=== PATIENT | male | born 1955 | race American Indian/Alaskan Native ===

== ENCOUNTER 2019-07-07 19:42 | Emergency (ER) | payer MEDICARE ==
[2019-07-07] MEDS ORDERED: levETIRAcetam 1,000 MG in SODIUM CHLORIDE 0.9% 100 ML IV ONE (20:52)
[2019-07-07] MEDS ORDERED: levETIRAcetam 1000 MG/NS 0.75% 1,000 MG/100 ML BAG IV ONE (21:00)
--- NOTE | 2019-07-07 21:05 | Emergency Department Report ---
ED Head Trauma HPI - General Chief complaint: Alcohol Stated complaint: AMS Time Seen by Provider: 07/07/19 20:19 Source: EMS Mode of arrival: Ambulatory Limitations: Other - History of Present Illness Initial comments: 64-year-old male brought in by EMS for head injury. Patient is bleeding from the nose and right ear. Patient is altered, smells of alcohol. Only able to tell me his name and states that he has to use the restroom. It is unclear the circumstances surrounding this head injury. Patient was apparently picked up from home. Has history of liver cirrhosis. Complaint: head injury -: unknown Arrival Conditions: Negative: C-spine immobilization present, spinal board immobilization present Mechanism of Injury: unsure Associated Symptoms: confusion - Related Data Allergies/Adverse reactions: Allergies Allergy/AdvReac Type Severity Reaction Status Date / Time No Known Allergies Allergy Unverified 07/07/19 22:17 ED Review of Systems ROS: Stated complaint: AMS Other details as noted in HPI Comment: Unobtainable due to pts medical conditions (pt is altered) ED Past Medical Hx - Past Medical History Hx Hypertension: Yes Hx Liver Disease: Yes (cirrhosis) Additional medical history: ETOH - Surgical History Additional Surgical History: CLARI - Social History Smoking Status: Unknown if ever smoked Substance Use Type: Alcohol ED Physical Exam - General Limitations: Other General appearance: appears intoxicated, lethargic - Eye Eye exam: Present: normal appearance, PERRL, EOMI - ENT ENT exam: Present: other (blood in the right external auditory canal; dried blood in nares) - Neck Neck exam: Present: normal inspection, full ROM. Absent: tenderness - Respiratory Respiratory exam: Present: normal lung sounds bilaterally. Absent: respiratory distress - Cardiovascular Cardiovascular Exam: Present: regular rate, normal rhythm - GI/Abdominal GI/Abdominal exam: Present: soft. Absent: distended, tenderness - Extremities Exam Extremities exam: Present: normal inspection - Neurological Exam Neurological exam: Present: altered, other (GCS=10, moves all extremities). Absent: oriented X3 (oriented to self) - Psychiatric Psychiatric exam: Present: normal affect, normal mood - Skin Skin exam: Present: warm, dry, intact ED Course Vital Signs 07/07/19 07/07/19 07/07/19 20:17 21:08 21:15 Temperature 97.5 F L Pulse Rate 80 83 79 Respiratory 18 15 16 Rate Blood Pressure 144/84 131/74 O2 Sat by Pulse 97 94 Oximetry 07/07/19 07/07/19 07/07/19 21:30 21:46 22:07 Temperature Pulse Rate 79 82 102 H Respiratory 17 23 22 Rate Blood Pressure 136/83 176/86 O2 Sat by Pulse 95 97 Oximetry 07/07/19 22:15 Temperature Pulse Rate 80 Respiratory 12 Rate Blood Pressure 204/86 O2 Sat by Pulse Oximetry - Reevaluation(s) Reevaluation #1: 07/07/19 21:16 Radiologist called. Reports pt has - left SDH, 8 mm - left SAH - left temporal contusions - right temporal bone fx Will call around to transfer pt. Reevaluation #2: 07/07/19 22:24 Pt had one episode of emesis. Blood pressure elevated afterward. Labetalol given. - Consultations Consultation #1: 07/07/19 21:30 Transfer accepted by [facility] trauma attending, Dr Perrin. - Lab Data Result diagrams: 07/07/19 21:00 07/07/19 21:00 Lab Results 07/07/19 07/07/19 07/07/19 Range/Units 21:00 21:00 21:00 WBC 13.2 H (4.5-11.0) K/mm3 RBC 3.63 L (3.65-5.03) M/mm3 Hgb 13.8 (11.8-15.2) gm/dl Hct 39.3 (35.5-45.6) % MCV 108 H (84-94) fl MCH 38 H (28-32) pg MCHC 35 H (32-34) % RDW 12.7 L (13.2-15.2) % Plt Count 232 (140-440) K/mm3 Lymph % (Auto) 17.1 (13.4-35.0) % Wilkin % (Auto) 9.9 H (0.0-7.3) % Eos % (Auto) 0.8 (0.0-4.3) % Baso % (Auto) 0.4 (0.0-1.8) % Lymph # 2.3 (1.2-5.4) K/mm3 Wilkin # 1.3 H (0.0-0.8) K/mm3 Eos # 0.1 (0.0-0.4) K/mm3 Baso # 0.1 (0.0-0.1) K/mm3 Seg Neutrophils % 71.8 H (40.0-70.0) % Seg Neutrophils # 9.5 H (1.8-7.7) K/mm3 PT 13.7 (12.2-14.9) Sec. INR 1.06 (0.87-1.13) APTT 26.0 (24.2-36.6) Sec. Sodium 143 (137-145) mmol/L Potassium 3.8 (3.6-5.0) mmol/L Chloride 104.8 (98-107) mmol/L Carbon Dioxide 21 L (22-30) mmol/L Anion Gap 21 mmol/L BUN 7 L (9-20) mg/dL Creatinine 0.7 L (0.8-1.5) mg/dL Estimated GFR > 60 ml/min BUN/Creatinine Ratio 10 % Glucose 123 H (75-100) mg/dL Calcium 8.5 (8.4-10.2) mg/dL Total Bilirubin (0.1-1.2) mg/dL Direct Bilirubin (0-0.2) mg/dL Indirect Bilirubin mg/dL AST (5-40) units/L ALT (7-56) units/L Alkaline Phosphatase (35-129) units/L Total Protein (6.3-8.2) g/dL Albumin (3.9-5) g/dL Albumin/Globulin Ratio % Plasma/Serum Alcohol (0-0.07) % 07/07/19 07/07/19 Range/Units 21:00 21:00 WBC (4.5-11.0) K/mm3 RBC (3.65-5.03) M/mm3 Hgb (11.8-15.2) gm/dl Hct (35.5-45.6) % MCV (84-94) fl MCH (28-32) pg MCHC (32-34) % RDW (13.2-15.2) % Plt Count (140-440) K/mm3 Lymph % (Auto) (13.4-35.0) % Wilkin % (Auto) (0.0-7.3) % Eos % (Auto) (0.0-4.3) % Baso % (Auto) (0.0-1.8) % Lymph # (1.2-5.4) K/mm3 Wilkin # (0.0-0.8) K/mm3 Eos # (0.0-0.4) K/mm3 Baso # (0.0-0.1) K/mm3 Seg Neutrophils % (40.0-70.0) % Seg Neutrophils # (1.8-7.7) K/mm3 PT (12.2-14.9) Sec. INR (0.87-1.13) APTT (24.2-36.6) Sec. Sodium (137-145) mmol/L Potassium (3.6-5.0) mmol/L Chloride (98-107) mmol/L Carbon Dioxide (22-30) mmol/L Anion Gap mmol/L BUN (9-20) mg/dL Creatinine (0.8-1.5) mg/dL Estimated GFR ml/min BUN/Creatinine Ratio % Glucose (75-100) mg/dL Calcium (8.4-10.2) mg/dL Total Bilirubin 0.40 (0.1-1.2) mg/dL Direct Bilirubin < 0.2 (0-0.2) mg/dL Indirect Bilirubin 0.2 mg/dL AST 43 H (5-40) units/L ALT 19 (7-56) units/L Alkaline Phosphatase 60 (35-129) units/L Total Protein 6.9 (6.3-8.2) g/dL Albumin 4.1 (3.9-5) g/dL Albumin/Globulin Ratio 1.5 % Plasma/Serum Alcohol 0.23 H (0-0.07) % - Radiology Data Radiology results: report reviewed, image reviewed - Medical Decision Making 64-year-old male presents to ED following fall at home. Patient has history of alcohol abuse and liver cirrhosis, per EMS. On exam, patient is altered with GCS of 10. Patient also has blood in the right external auditory canal. He is moving all extremities, somewhat follow commands. Patient able to state his name, but is only oriented to self. CT scans show patient has an acute subdural hematoma, traumatic subarachnoid hemorrhage, cerebral contusions, and possible temporal bone fracture. Patient has been loaded with Keppra 1000 mg IV. Platelets and INR are both within normal limits. EtOH level is 230. Patient has been accepted by trauma attending at [facility], Dr. Perrin. Vital sign s stable up until episode of emesis after which pt became hypertensive. Labetalol given. Awaiting transport. - Differential Diagnosis skull fx, intracranial bleed, ETOH intoxication Critical Care Time: Yes Critical care time in (mins) excluding proc time.: 60 Critical care attestation.: If time is entered above; I have spent that time in minutes in the direct care of this critically ill patient, excluding procedure time. Critical Care Time: 60 minutes ED Disposition Clinical Impression: Acute subdural hematoma, Traumatic subarachnoid hemorrhage, Cerebral contusion, Alcohol intoxication Disposition: DC/TX-70 ANOTHER TYPE HLTHCARE Is pt being admited?: No Condition: Stable Referrals: PRIMARY CARE, [Primary Care Provider] - 3-5 Days Time of Disposition: 21:33
--- NOTE | 2019-07-07 21:18 | Cat Scan Report ---
NONENHANCED CT SCAN OF THE HEAD: INDICATION / CLINICAL INFORMATION: 64 years Male; trauma. TECHNIQUE: Routine CT head without contrast. All CT scans at this location are performed using CT dos e reduction for ALARA by means of automated exposure control. COMPARISON: None. FINDINGS: BRAIN / INTRACRANIAL CONTENTS: Abnormal CT scan. Left subdural hematoma (maximum thickness of 8 mm) i s seen extending around the entire left cerebral hemisphere. Subarachnoid hemorrhage is seen in the s ylvian fissure. Focal areas of contusions are seen in the left temporal lobe. Thickening of the falx cerebri suggest interhemispheric fissure hematoma. I do not see depressed skull fracture. Fluid level is seen in the sphenoid sinus.. Though I am unable to identify the fracture, this suggest s skull base fracture. Fluid level is seen in the right mastoid antrum. Nondisplaced transverse fracture of the right tempor al bone is seen. Ossicular chain is not disrupted. Soft tissue emphysema is seen in the deep spaces of the neck. Chronic lacune is seen in the right corpus stratum. Periventricular low density areas are seen due to microvascular faint angiopathy. CRANIOCERVICAL JUNCTION: No significant abnormality. ORBITS: No significant abnormality of visualized orbits. SINUSES / MASTOIDS: No significant abnormality of the visualized paranasal sinuses ADDITIONAL FINDINGS: None. IMPRESSION: Acute subdural hematoma (maximum thickness of a 22 mm) around left cerebral hemisphere with the poste rior posttraumatic subarachnoid hemorrhage and contusion in the left temporal lobe. Signer Name: Farida Montoya MD Signed: 07/07/2019 9:14 PM Workstation Name: [id number]
--- NOTE | 2019-07-07 21:22 | Cat Scan Report ---
All CT scans at this location are performed using CT dose reduction for ALARA by means of automated e xposure control. CT FACE HISTORY: Trauma COMPARISON: None. TECHNIQUE: Axial images of the face were obtained. Coronal reformats were generated. CONTRAST: None. FINDINGS: Facial bones: Do not see an acute midface fracture. Old healed fractures are seen bilaterally. Bony orbit normal. Zygomaticomaxillary complexes normal. Mandible is normal. Air-fluid level is seen in the sphenoid sinus. I am unable to identify fracture through the skull bas e. Orbits: No significant abnormality. Additional findings: None. IMPRESSION: 1. I do not see an obvious facial bone fracture. Signer Name: Farida Montoya MD Signed: 07/07/2019 9:18 PM Workstation Name: [id number]
[2019-07-07 21:23] LABS: Basophils # (Auto) 0.1 K/mm3 (0.0-0.1); Basophils % (Auto) 0.4 % (0.0-1.8); Eosinophils # (Auto) 0.1 K/mm3 (0.0-0.4); Eosinophils % (Auto) 0.8 % (0.0-4.3); Hematocrit 39.3 % (35.5-45.6); Hemoglobin 13.8 gm/dl (11.8-15.2); Lymphocytes # (Auto) 2.3 K/mm3 (1.2-5.4); Lymphocytes % (Auto) 17.1 % (13.4-35.0); Mean Corpuscular HGB Conc 35 % (32-34); Mean Corpuscular Volume 108 fl (84-94); Monocytes # (Auto) 1.3 K/mm3 (0.0-0.8); Monocytes % (Auto) 9.9 % (0.0-7.3); Platelet Count 232 K/mm3 (140-440); Red Blood Count 3.63 M/mm3 (3.65-5.03); Red Cell Distribution Width 12.7 % (13.2-15.2)
--- NOTE | 2019-07-07 21:27 | Cat Scan Report ---
Exam: CT cervical spine History: trauma; Technique: Contiguous thin cut axial images obtained through the cervical spine. Sagittal and barker l reconstructions performed by the technologist. All CT scans at this location are performed using CT dose reduction for ALARA by means of automated exposure control. Findings: No priors. There is no evidence of fracture or traumatic subluxation. Scoliosis towards the left side is seen. I do not see vertebral compression fracture. Prevertebral space is normal. In the transverse images, I do not see fracture involving the bony canal. Intervertebral disc spaces are well-maintained. C5-C6 disc level, broad-based bony spur is seen extending bilaterally narrowing the neural foramina. At C6-C7 disc level, broad-based disc protrusion is seen. Surrounding soft tissues are grossly normal. Impression: No signs of acute bony trauma to the cervical spine. As seen in the head CT images, fracture of the right temporal bone is seen resulting in air-fluid lev el in the right mastoid antrum and many mastoid air cells Air-fluid level is also seen in the sphenoid sinus suggesting skull base fracture; I am unable to see the fracture in the CT scans. Signer Name: Farida Montoya MD Signed: 07/07/2019 9:23 PM Workstation Name: [id number]
[2019-07-07 21:28] LABS: BUN/Creatinine Ratio 10; Blood Urea Nitrogen 7 mg/dL (9-20); Calcium 8.5 mg/dL (8.4-10.2); Hemolysis Index 10; INR 1.06 (0.87-1.13)
[2019-07-07 21:33] LABS: Alanine Aminotransferase 19 units/L (7-56); Albumin 4.1 g/dL (3.9-5)
[2019-07-07 21:36] LABS: Bilirubin,Direct < 0.2 mg/dL (0-0.2)
[2019-07-07] MEDS ORDERED: ONDANSETRON 4 MG/2 ML INJ IV ONE (21:46)
[2019-07-07 22:17] VITALS: BP 204/86
== END 2019-07-07 22:40 | disposition other institution (70) ==
LOC: ED 19:42
DX: S06.6X0A Traumatic subarachnoid hemorrhage without loss of consciousness, initial encounter (principal); F10.120 Alcohol abuse with intoxication, uncomplicated; I10 Essential (primary) hypertension; K70.30 Alcoholic cirrhosis of liver without ascites; W01.198A Fall on same level from slipping, tripping and stumbling with subsequent striking against other object, initial encounter; Y93.89 Activity, other specified; Y92.098 Other place in other non-institutional residence as the place of occurrence of the external cause; Y99.8 Other external cause status
CPT/HCPCS: 36415; 70450; 70486; 72125; 80048; 80076; 85025; 85610; 85730; 96365; 96375; 99291; J1953; J2405; 80320; G0480